=== PATIENT | female | born 1955 | race Caucasian/White ===

== ENCOUNTER 2019-09-04 07:05 | Inpatient (IN) | payer BC ==
--- NOTE | 2019-08-27 19:08 | HP ---
HISTORY AND PHYSICAL: DATE OF ADMISSION/SURGERY: 09/04/19 DATE OF OFFICE VISIT: 08/27/19 SURGEON: Kellen Washburn MD * (DICTATED BY JAKE GUERRERO) PROCEDURE: Right total knee arthroplasty. CHIEF COMPLAINT: Right knee pain. HISTORY OF PRESENT ILLNESS: Ms. Apodaca is a 63-year-old female with end-stage osteoarthritis of the right knee. She has failed conservative treatment and elected to proceed with a right total knee arthroplasty. PAST MEDICAL HISTORY: Migraine, hypertension, high cholesterol, GERD, and sleep apnea. PAST SURGICAL HISTORY: Right salivary gland removal, right carpal tunnel release, left knee arthroscopy, calcaneal osteotomy, and a tendon transfer of the left foot. CURRENT MEDICATIONS: 1. Simvastatin 20 mg daily. 2. Lisinopril 20 mg daily. 3. Buspirone 5 mg 3 times a day. 4. Omeprazole 40 mg a day. 5. Vitamin D3 calcium fiber. 6. Hydrochlorothiazide 12.5 mg a day. 7. Pantoprazole sodium 20 mg 1 to 2 tabs daily. 8. Ibuprofen as needed. 9. Sumatriptan as needed. ALLERGIES: LATEX. FAMILY HISTORY: Diabetes and stroke. SOCIAL HISTORY: She is a 63-year-old female. She lives with her . She does not smoke, use drugs or alcohol. REVIEW OF SYSTEMS: A complete 14-point review of systems was reviewed with the patient. It was positive for GERD. She denies history of DVT, PE, hepatitis, HIV, or anesthesia problems. PHYSICAL EXAMINATION GENERAL: She is well nourished, in no acute distress. She is alert and oriented x3. VITAL SIGNS: She is 66-1/2 inches tall, weighs 233 pounds. Her blood pressure is 134/82, heart rate 79. HEENT: Normocephalic, atraumatic. NECK: Supple. No palpable lymph nodes. PULMONARY: Lungs are clear to auscultation bilaterally. CARDIO: Regular rate and rhythm. Strong S1, S2. ABDOMEN: Soft, nontender, nondistended. NEUROLOGICAL: She is alert and oriented. MUSCULOSKELETAL: Right lower extremity, the skin is intact. There are no open wounds or abrasions. There is moderate effusion of the right knee. She has tenderness along the medial joint line. Range of motion 10 to 120 degrees of flexion. She is able to dorsiflex and plantarflex. She has 2+ dorsalis pedis pulse and intact sensation. ASSESSMENT AND PLAN: Ms. Apodaca is a 63-year-old female with end-stage osteoarthritis of the right knee. She has failed conservative treatment and elected to proceed with a right total knee arthroplasty. The surgery is scheduled for 09/04/[address] Washburn discussed the risks and benefits of the surgery at today's visit and all of her questions were answered. She will follow up with Dr. Washburn 2 weeks after the surgery. JAKE GUERRERO [id number]/[facility] #: [id number] WILBUR
[~2019-09-04 07:05] MED LIST: Buffered Lidocaine 1% SYRIN* 1 ML/SYRINGE INTRADERM ONE; Lactated Ringers 1000 ML Bag* 1,000 ML IV SCH; Tranexamic Acid 1,000 MG in NS 0.9% 50 ML* (outpatient use) IV SCH
[2019-09-04] MEDS ORDERED: Buffered Lidocaine 1% SYRIN* 1 ML/SYRINGE INTRADERM ONE (07:29)
[2019-09-04] MEDS ORDERED: ceFAZolin 2 GM in NS PREMIX(*) 2 GM/100 ML BAG IVPB ONE (07:29)
[2019-09-04] MEDS ORDERED: Lidocaine 2% PF * 5 ML VIAL ONE ×2 (07:42→10:44)
[2019-09-04] MEDS ORDERED: Propofol* 10 MG/ML 20 ML BTL ONE ×2 (07:42→10:44)
[2019-09-04] MEDS ORDERED: Midazolam* 1 MG/ML 2 ML VIAL (2 MG) ONE ×3 (07:43→10:23)
[2019-09-04] MEDS ORDERED: fentaNYL* 50 MCG/ML 2 ML VIAL (100 MCG VIAL) ONE ×2 (07:43→10:23)
[2019-09-04] MEDS ORDERED: Dexmedetomidine* 200 MCG/2 ML 2 ML VIAL ONE (07:44)
[2019-09-04] MEDS ORDERED: Rocuronium* 10 MG/ML VIAL ONE ×2 (10:02→10:45)
[2019-09-04] MEDS ORDERED: ROPIVACAINE 5 MG/ML 30 ML BTL (0.5%) ONE (10:58)
[2019-09-04] MEDS ORDERED: diPHENhydraMINE IV* 50 MG/ML 1 ml VIAL (BENADRYL) IV PRN ×2 (11:13→14:23)
[2019-09-04] MEDS ORDERED: oxyCODONE TAB* 5 MG TAB PO PRN (11:13)
[2019-09-04] MEDS ORDERED: Naloxone* 0.4 MG/ML 1 ML VIAL IV PRN (11:13)
[2019-09-04] MEDS ORDERED: PROCHLORPERAZINE INJ 5 MG/ML 2 ML VIAL IV PRN (11:13)
[2019-09-04] MEDS ORDERED: celeCOXIB CAP* 200 MG PO ONE (11:15)
[2019-09-04] MEDS ORDERED: Acetaminophen TAB* 325 MG PO ONE (11:15)
[2019-09-04] MEDS ORDERED: celeCOXIB CAP* 200 MG ONE (11:34)
[2019-09-04] MEDS ORDERED: Acetaminophen TAB* 325 MG ONE (11:34)
[2019-09-04] MEDS ORDERED: Dexamethasone IV* 4 MG/ML 1 ML (4 MG) ONE (12:11)
[2019-09-04] MEDS ORDERED: HYDROmorphone INJ1* 1 MG/ML SYRINGE ONE ×3 (12:30→15:07)
[2019-09-04] MEDS ORDERED: Ondansetron INJ* 2 MG/ML VIAL ONE (14:02)
[2019-09-04] MEDS ORDERED: Glycopyrrolate IV* 0.2 MG/ML 1 ML VIAL ONE (14:03)
[2019-09-04] MEDS ORDERED: Neostigmine Methylsulfate* 3 MG/3 ML SYRINGE ONE (14:03)
[2019-09-04] MEDS ORDERED: Magnesium Hydroxide LIQ* 30 ML UDC PO PRN (14:23)
[2019-09-04] MEDS ORDERED: Ondansetron ODT TAB* 4 MG PO PRN (14:23)
[2019-09-04] MEDS ORDERED: Ondansetron INJ* 2 MG/ML VIAL IV PRN (14:23)
[2019-09-04] MEDS ORDERED: Morphine INJ* 2 MG/ML 1 ML SYRINGE (TWO MG - NEW SYRINGE VERSION) IV PRN (14:23)
[2019-09-04] MEDS ORDERED: Ondansetron TAB* 4 MG PO PRN (14:23)
[2019-09-04] MEDS ORDERED: diPHENhydraMINE PO* 25 MG PO PRN (14:23)
[2019-09-04] MEDS ORDERED: Polyethylene Glycol 3350* 17 GM PACKET PO PRN (14:23)
--- NOTE | 2019-09-04 14:33 | PN ---
Progress Note - Progress Note Date of Service: 09/04/19 Note: resting in recovery; moderate pain. Able to DF/PF, 2+ DP pulse and intact sensation
[2019-09-04] MEDS: HYDROmorphone INJ1* 1 MG/ML SYRINGE IV PRN ×4 (14:34→15:09)
--- NOTE | 2019-09-04 16:04 | CONS ---
CC: Dr. Naila Coulter; Dr. Washburn * CONSULTATION REPORT: DATE OF CONSULT: 09/04/19 PRIMARY CARE PROVIDER: Dr. Naila Coulter. REASON FOR CONSULT: Management of the patient's postoperative elective right knee surgery, with history of hypertension. CHIEF COMPLAINT: Right knee pain. HISTORY OF PRESENT ILLNESS: Zuleyma Apodaca is a 63-year-old female with history of osteoarthritis, who just underwent an elective right knee replacement with Dr. Washburn. The patient has history of hypertension and a Medicine consult was requested in regards to management of the patient's chronic medical conditions. PAST MEDICAL HISTORY: 1. Gastroesophageal reflux disease. 2. History of bilateral leg edema for which the patient takes hydrochlorothiazide. 3. Dyslipidemia. 4. Hypertension. 5. History of benign salivary gland mass resection. 6. Knee arthroscopy in the past. 7. History of left ankle surgery. 8. History of obstructive sleep apnea, which was mild, not treated with CPAP. MEDICATIONS AT HOME: Include: 1. Lisinopril/hydrochlorothiazide 20/12.5 one tablet daily. 2. Ibuprofen on a p.r.n. basis. 3. Calcium carbonate/vitamin D 1 tablet daily. 4. Fiber tabs 4 tabs daily. 5. Pantoprazole 40 mg daily. 6. Imitrex 100 mg on a p.r.n. basis. 7. Simvastatin 20 mg daily. 8. BuSpar 5 mg 3 times a day. ALLERGIES: ALLOY and LATEX. FAMILY HISTORY: Positive for mother who with history of Alzheimer's at age of 89. The patient's mother also had history of diabetes. Father who of stroke at age of 61. SOCIAL HISTORY: The patient smoked for a period of a year and a half when she was in her 20s. She denies any drug use. She drinks alcohol rarely. She is currently just retired from [employer]. She lives with her female partner, who is her surrogate. REVIEW OF SYSTEMS: Please see history of present illness. All the remaining 12 systems were reviewed with the patient and were otherwise negative. PHYSICAL EXAM: Blood pressure of 152/75, heart rate of 59 and regular, respiratory rate 29, oxygen saturation 95% on room air, temperature of 98.1. General: The patient is a very pleasant 63-year-old female, who is in no acute distress. The patient is alert and oriented x3. HEENT: Head: Atraumatic, normocephalic. Eyes: Pupils are equal, reactive to light and accommodation. Oropharynx is clear. Mucosa moist. Neck: Supple. No JVD. No bruits bilaterally. Cardiovascular: Regular rate and rhythm. No murmur. Respiratory : Clear to auscultation bilaterally. Abdomen: Soft, nontender. Bowel sounds are present in all 4 quadrants. Extremities: There is no edema. Pulses are + 2 bilaterally. No clubbing or cyanosis. The right knee is in postoperative dressings with a Cryo unit in place. Neuro Evaluation: Speech is clear. Cranial nerves II through XII grossly intact. Motor strength is 5/5 bilaterally. ASSESSMENT AND PLAN: 1. In regards to the patient's postoperative right knee replacement, this is going to be deferred to primary orthopedic service. 2. For the patient's hypertension, I will hold the patient's lisinopril and hydrochlorothiazide for the time being. The patient will likely be able to restart it at discharge. 3. For gastroesophageal reflux disease, the patient's pantoprazole is going to be continued. 4. For DVT prophylaxis, the patient was already placed on apixaban by orthopedic service. 5. The patient's code status is full. Her surrogate is the patient's , Naila Penaloza. Thank you very much for allowing our service to see the patient in consultation. We will follow on an as-needed basis. [id number]/[facility] #: [id number] WILBUR
[2019-09-04] MEDS: Lactated Ringers 1000 ML Bag* 1,000 ML IV SCH (16:05)
[2019-09-04] MEDS: oxyCODONE/Acetamin 5/325 MG* TAB PO PRN ×2 (16:24→23:52)
[2019-09-04] MEDS: Atorvastatin* 10 MG TAB PO SCH (17:27)
--- NOTE | 2019-09-04 18:20 | OP ---
Operative Report - Blank - Operative Report Date of Operation: 09/04/19 Note: SHILPA JACOME 1955 Date of Surgery: 09/04/19 Kellen Washburn MD Human Resources Professional: Chuck JOSEPH did help throughout the procedure with preparation of the knee, wound retraction, manipulation of the knee, and wound closure. Anesthesiologist: Karina CHINCHILLA Anesthesia Type: Spinal Preoperative Diagnosis: Right severe degenerative osteoarthritis of the knee Postoperative Diagnosis: As above Procedure Performed: Right Total Knee Arthroplasty Tourniquet time: 44 minutes Complications: None Specimen: Bone and cartilage from the right knee joint sent to pathology. Hardware Used: Cemented Carcamo [employer] Nephew total knee hardware was used - For the femur a size 6 Narrow oxinium right legion posterior stabilized femoral component, for the tibia a size 5 right boogie II tibial baseplate, for the insert a size 11mm 5-6 posterior stabilized articular polyethylene insert, and for the patella a size 32 3-peg all poly patella. Brief History/Indication: SHILPA JACOME was known in clinic and had a history of severe right knee pain and swelling. She failed conservative treatment with anti -inflammatories, pain pills, intra-articular injections and physical therapy. She elected to undergo right total knee arthroplasty due to continued pain and decreased quality of life. Radiographs showed severe end stage osteoarthritis of the knee with bone on bone contact. Informed consent was obtained from the patient. She understood the risks of surgery included but were not limited to: bleeding, infection, damage to nearby structures, intraoperative fracture, nerve palsy, failure of the hardware, early loosening, knee stiffness or loss of motion, anesthesia complications, stroke, heart attack, blood clot and . She wished to proceed. Intra-Operative Findings: Intraoperatively the patient was noted to have severe loss of cartilage in all 3 compartments of the knee. Description of the Procedure: SHILPA JACOME was identified in the preanesthesia unit. Her right knee was marked as the correct operative side. Informed consent was signed and placed in the chart. The patient was taken to the operating room and placed under anesthesia without complication. A paredes catheter was placed. A tourniquet was placed on the right thigh. The right lower extremity was prepped and draped in the usual sterile fashion. Preoperative time-out was made to correctly identify the patient, side and site. Appropriate intraoperative antibiotics were given within one hour of incision. Tourniquet was inflated. A midline incision was made and carried sharply down to the extensor mechanism. A new 10 blade was used to make a standard medial parapatellar arthrotomy. The patella was subluxed laterally. Electrocautery was used to dissect soft tissue off the superomedial tibia to the midsagittal plane. The knee was flexed up. The anterior horn of the lateral meniscus and the ACL were sharply incised. A drill was used to enter the distal femur. The intramedullary distal femoral cutting guide was pinned on the distal femur. The oscillating saw was used to make the distal femoral cut. The external rotation guide was pinned on the distal femur and the distal femur was sized to a size 6. The size 6 multi-cutting jig was pinned on the distal femur. The oscillating saw was used to make the appropriate 4 chamfer cuts. Next the PCL was completely released. The extramedullary tibial cutting guide was pinned on the proximal tibia and the oscillating saw was used to make the proximal tibial cut perpendicular to the mechanical axis of the tibia. The bone was carefully removed. The knee was brought out into full extension. The spacer block was placed and had excellent fit with the knee in full extension. The medial and lateral ligaments were well balanced. The flexion and extension gaps were well balanced. The knee was flexed up. Lamina hydrographer was placed both medially and laterally. Any remaining meniscus was removed with electrocautery. Curved osteotome was used to remove any posterior osteophytes. The tibial tray and drop muriel were placed and confirmed a satisfactory tibial cut. The size 6 right narrow femoral trial was impacted onto the distal femur. This trial had excellent fit and stability. The box for the posterior stabilized implant was prepared using a box cut osteotome and a reamer. Next a tibial tray trial and 9 mm insert trial was placed. The knee was taken through a range of motion and had full extension to 130 degrees of flexion. Patellofemoral tracking was satisfactory. The patella was inverted and sized to a size 32. Three peg holes were drilled through the size 32 drill guide. The trial patella was placed and the knee was taken through a range of motion. There was satisfactory patellofemoral tracking. All trials were removed. The tibia was subluxed anteriorly and sized to a size 5. The proximal tibial was prepared with a size 5 keel punch. All bony cut surfaces were irrigated with sterile saline and dried. Final implants were cemented into place starting with the tibia, followed by the femur, and last the patella. A 11 mm insert trial was placed and the knee was brought into full extension. Tourniquet was turned down and the knee was copiously irrigated with sterile saline. Electrocautery was used to obtain meticulous hemostasis. Once the cement had fully cured, the insert trial was removed. Any excess cement was removed from around the hardware and capsule. Final insert chosen was a 11 mm posterior stabilized Boogie II articular insert size 5-6. Stability of the insert was checked and noted to be stable. The extensor mechanism was closed using number 1 vicryls. The rest of the incision was closed in a layered fashion using 0 and 2-0 vicryls. The skin was closed using 3-0 nylon suture. Sterile xeroform, 4x4s and webril were used to cover the incision. Timmy wrap and cold pack were used to cover the dressings. The patients anesthesia was reversed without difficulty. She was taken to the PACU in stable condition. Intended weight-bearing will be as tolerated.
[2019-09-04] MEDS: oxyCODONE TAB* 5 MG TAB PO PRN (19:18)
[2019-09-04] MEDS: ceFAZolin 1 GM ADVAN(*) 1 GM in NS 0.9% 50 ML* 50 ML IVPB SCH (20:03)
[2019-09-04] MEDS: Magnesium Hydroxide LIQ* 30 ML UDC PO SCH (21:21)
[2019-09-04] MEDS: busPIRone TAB* 5 MG PO SCH (21:21)
[2019-09-04] MEDS: Docusate CAP* 100 MG PO SCH (21:21)
[2019-09-04] MEDS: Acetaminophen TAB* 325 MG PO SCH (21:22)
[2019-09-04] MEDS: Cyclobenzaprine TAB* 10 MG PO PRN (21:26)
[2019-09-05] MEDS: Lactated Ringers 1000 ML Bag* 1,000 ML IV SCH (03:42)
[2019-09-05] MEDS: ceFAZolin 1 GM ADVAN(*) 1 GM in NS 0.9% 50 ML* 50 ML IVPB SCH ×2 (03:44→11:55)
[2019-09-05] MEDS: Acetaminophen TAB* 325 MG PO SCH ×3 (05:03→20:40)
[2019-09-05] MEDS: traMADol TAB* 50 MG PO PRN ×4 (05:03→23:24)
[2019-09-05 06:44] LABS: Hematocrit 37 % (35-47); Hemoglobin 12.7 g/dL (12.0-16.0); Mean Platelet Volume 8.1 fL (7.4-10.4); Platelet Count 168 10^3/uL (150-450)
[2019-09-05 07:00] LABS: Calcium 9.1 mg/dL (8.6-10.3); Potassium 4.6 mmol/L (3.5-5.0)
[2019-09-05 07:05] LABS: BUN/Creatinine Ratio 19.1 (8-20); EGFR Non-African American 60.3 (>60)
[2019-09-05] MEDS ORDERED: Scopolamine 1.5 mg* PATCH TRANSDERM ONE (08:00)
[2019-09-05] MEDS: Cyclobenzaprine TAB* 10 MG PO PRN ×2 (08:50→16:43)
[2019-09-05] MEDS: oxyCODONE/Acetamin 5/325 MG* TAB PO PRN ×2 (08:50→18:35)
[2019-09-05] MEDS: Apixaban* 2.5 MG TAB PO SCH ×2 (08:51→20:41)
[2019-09-05] MEDS: Magnesium Hydroxide LIQ* 30 ML UDC PO SCH ×2 (08:51→20:41)
[2019-09-05] MEDS: busPIRone TAB* 5 MG PO SCH ×3 (08:51→20:41)
[2019-09-05] MEDS: Pantoprazole TAB * 40 MG TAB PO SCH (08:51)
[2019-09-05] MEDS: Vitamin THERAPEUTIC TAB PO SCH (08:51)
[2019-09-05] MEDS: Docusate CAP* 100 MG PO SCH ×2 (08:51→20:41)
[2019-09-05] MEDS ORDERED: Lisinopril/HCTZ 20/12.5(NF) TAB PO SCH (09:00)
--- NOTE | 2019-09-05 10:54 | PN ---
Progress Note - Progress Note Date of Service: 09/05/19 SOAP: Subjective: [Pt was seen this morning sitting in chair. She states that she is feeling somewhat groggy at this point. She did do PT this am and states that she did very well. She denies any chest pain, SOB, nausea or vomiting. She states that she may wish to stay another night should she continue to feel groggy. ] Objective: [General: Pt is alert and oriented x3. NAD MSK, RLE: Dressing is c/d/i. +df/pf. calf soft and non tender. NVI distally, 2+ DP pulse. Vital Signs Temp 98.8 F 09/05/19 08:26 Pulse 70 09/05/19 08:26 Resp 18 09/05/19 10:07 BP 112/54 09/05/19 08:26 Pulse Ox 92 09/05/19 08:26 Intake & Output 09/04/19 09/05/19 09/05/19 18:59 06:59 18:59 Intake Total 1650 2585 Output Total 275 1750 Balance 1375 835 Weight 229 lb Intake: IV Fluids 1500 1035 ABX - CEFAZOLIN 55 LR 1500 980 Oral 150 1550 Output: Martino 275 1750 Other: # Bowel Movements 0 ] Assessment: [POD 1 RTKA ] Plan: [PT Eliquis 2.5mg bid Percocet 5/325 Possible DC home today vs tomorrow. ]
[2019-09-05] MEDS: oxyCODONE TAB* 5 MG TAB PO PRN (13:22)
[2019-09-05] MEDS: Atorvastatin* 10 MG TAB PO SCH (18:33)
[2019-09-06 05:49] LABS: Hematocrit 35 % (35-47); Hemoglobin 12.1 g/dL (12.0-16.0); Mean Platelet Volume 8.2 fL (7.4-10.4); Platelet Count 161 10^3/uL (150-450)
[2019-09-06] MEDS: traMADol TAB* 50 MG PO PRN (06:19)
[2019-09-06] MEDS: Acetaminophen TAB* 325 MG PO SCH (06:22)
[2019-09-06 07:51] VITALS: BP 135/69
[2019-09-06] MEDS: Pantoprazole TAB * 40 MG TAB PO SCH (08:36)
[2019-09-06] MEDS: oxyCODONE/Acetamin 5/325 MG* TAB PO PRN (08:36)
[2019-09-06] MEDS: Apixaban* 2.5 MG TAB PO SCH (08:36)
[2019-09-06] MEDS: busPIRone TAB* 5 MG PO SCH (08:36)
[2019-09-06] MEDS: Vitamin THERAPEUTIC TAB PO SCH (08:36)
[2019-09-06] MEDS: Docusate CAP* 100 MG PO SCH (08:36)
[2019-09-06] MEDS: Magnesium Hydroxide LIQ* 30 ML UDC PO SCH (08:37)
--- NOTE | 2019-09-06 09:54 | DS ---
Orthopedic Discharge Summary - Discharge Summary Date of Admission:09/04/19 Date of Discharge: 09/06/19 Date of Surgery: 09/04/19 Attending Orthopedic Provider: Dr. Washburn Pre-operative Diagnosis: Right knee osteoarthritis Operative Procedure: Right total knee arthroplasty Disposition of Patient: Home Home care vs Outpatient services: Home care Condition of Patient: Stable Pain medication RX at discharge: Percocet and Tramadol sent to [facility] DVT prophylaxis RX at discharge: Eliquis sent to [facility] in [place] History: SHILPA JACOME is a 63 year old F with years of increasingly severe right knee pain. Patient has failed conservative management and has elected to undergo a Right total knee arthroplasty Hospital Course: SHILPA was admitted to [facility] on 09/04/19. Patient underwent a Right total knee arthroplasty without complication followed by a brief recovery in PACU and transfer to the Short Stay Surgical Unit in stable condition. Our hospitalist service, physical therapy and occupational therapy also participated in this patients care. Post-op day 1: patient was alert and in no acute distress. Dressing was clean, dry and intact. Operative extremity dorsiflexion and plantarflexion intact, sensation intact to light touch distally, DP2+. Post-op day two: dressing was changed, incision was clean , dry and intact. Patient was deemed to be medically and orthopedically stable for discharge. Physical therapy goals were met. Home Medications Medication Instructions Recorded Confirmed Type Simvastatin TAB(NF) [Zocor 20 MG 20 mg PO QPM 09/29/14 09/04/19 History (NF)] busPIRone TAB* [Buspar TAB*] 5 mg PO TID 09/29/14 09/04/19 History SUMAtriptan TAB* [Imitrex TAB*] 100 mg PO SEE INSTRUCTIONS PRN 04/25/18 History Calcium Carb, Citrate/Vit D3 1 tab PO QAM 08/27/19 09/04/19 History [Calcium + D3 ER Tablet] Calcium Polycarbophil [Fiber] 4 cap PO QAM 08/27/19 09/04/19 History Lisinopril/Hydrochlorothiazide 1 each PO QAM 08/27/19 09/04/19 History [Lisinopril-Hctz 20-12.5 mg Tab] Pantoprazole TAB * [Protonix TAB*] 40 mg PO QAM 08/27/19 09/04/19 History Apixaban* [Eliquis*] 2.5 mg PO BID tab 09/05/19 Rx oxyCODONE/Acetamin 5/325 MG* 2 tab PO Q4H PRN tab 09/05/19 Rx [Percocet 5/325 TAB*] traMADol TAB* [Ultram*] 50 mg PO Q6H PRN tab 09/05/19 Rx Discharge Instructions following Orthopedic Surgery: Activity: * Weight Bearing as tolerated * Continue physical therapy and occupational therapy exercises as shown * If you have elected to have home physical therapy, continue therapy exercises at home. If you have elected outpatient physical therapy, please start therapy as an outpatient right away. * Wound care: * OK to shower on post-op day 3, no bathing, swimming, or submerging wound. * Use gentle soap, pat dry. Cover with gauze, JULIA wrap or tape. * If you elected to have a visiting home nurse, they will perform wound checks. Call Orthopedic office for: * Increased drainage * Redness * Increased pain * Fever Go to ER with shortness of breath or chest pain. Diet: * Regular diet * Increase fluids and fiber to prevent constipation. * Continue to use stool softeners, call office if no bowel motion within 48 hours. Medications See Home Medication List in your packet for medications that you should take after discharge. DVT Prophylaxis: Eliquis Dosin.5 mg, 1 tab every 12 hours x 30 days Pain Control: Tramadol 50 mg tabs: take 1 tab for breakthrough pain as needed. Max 2 per day. Hold for sedation, wean off as soon as pain allows. Percocet 5/325 mg 1 tab for moderate pain and 2 tabs for severe pain by mouth every 4 hours as needed. Maximum of 10 tabs per day. Hold for sedation , wean off as soon as pain allows Please note that Percocet contains Tylenol (acetaminophen). Maximum daily dose of Tylenol is 4000 mg from all sources. Antibiotics are required prior to any dental work. Call the office for prescription as needed. FOLLOW UP: Follow up with Dr. Washburn Within 10-14 days, call for appointment if you do not already have one. Please call our office with any questions or concerns ([phone])
[2019-09-08] MEDS ORDERED: Scopolamine PATCH Remove* 1 NOTE MISC PATCH OFF ONE (08:00)
== END 2019-09-06 11:15 | disposition home health service (06) | DRG 302 ==
LOC: AA 07:05 → SSU 14:23
PROVIDERS: ADMIT Orthopaedic Surgery Adult Reconstructive Orthopaedic Surgery; ATTEND Orthopaedic Surgery Adult Reconstructive Orthopaedic Surgery
PROC: 0SRC069 Replacement of Right Knee Joint with Oxidized Zirconium on Polyethylene Synthetic Substitute, Cemented, Open Approach (ICD-10-PCS; principal; 2019-09-04 10:00)
DX: M17.11 Unilateral primary osteoarthritis, right knee (principal); I10 Essential (primary) hypertension; E78.00 Pure hypercholesterolemia, unspecified; K21.9 Gastro-esophageal reflux disease without esophagitis; G47.33 Obstructive sleep apnea (adult) (pediatric); G43.909 Migraine, unspecified, not intractable, without status migrainosus; M25.761 Osteophyte, right knee; Z79.899 Other long term (current) drug therapy; Z91.040 Latex allergy status; Z83.3 Family history of diabetes mellitus; Z82.3 Family history of stroke; Z88.8 Allergy status to other drugs, medicaments and biological substances; Z87.891 Personal history of nicotine dependence
CPT/HCPCS: 36415; 80048; 85014; 85018; 85049; 88305; 88311; A9270-GY; C1776; J0690; J1100; J1170; J2250; J2405; J2704; J2710; J2795; J3010

== ENCOUNTER 2022-05-16 10:08 | Observation (INO) ==
[~2022-05-16 10:08] MED LIST changes: +Buffered Lidocaine 1% SYRIN 1 ml INTRADERM ONE; -Buffered Lidocaine 1% SYRIN* 1 ML/SYRINGE INTRADERM ONE; -Lactated Ringers 1000 ML Bag* 1,000 ML IV SCH; +Lactated Ringers 1000 ml BAG 1,000 ML IV SCH; +Metoclopramide 5 MG/ML VIAL (10 mg) IV PRN; +Naloxone 0.4 mg VIAL 0.4 mg/ml 1 ml VIAL IV PRN; +Ondansetron 4 mg VIAL 2 MG/ML 2 ml VIAL IV PRN; -Tranexamic Acid 1,000 MG in NS 0.9% 50 ML* (outpatient use) IV SCH
[2022-05-16] MEDS ORDERED: Lidocaine 2% PF 5 ML VIAL ONE (10:18)
[2022-05-16] MEDS ORDERED: Propofol 10 MG/ML 20 ML BTL ONE ×2 (10:18→13:51)
[2022-05-16] MEDS ORDERED: ceFAZolin 2 GM PREMIX 2 GM/50 ML BAG ONE (10:31)
[2022-05-16] MEDS ORDERED: Midazolam 2 mg/2 ml VIAL 1 mg/ml 2 ml VIAL (2 mg) ONE ×2 (11:09→13:32)
[2022-05-16] MEDS ORDERED: fentaNYL 100 mcg/2 ml 50 MCG/ML VIAL ONE ×3 (11:09→16:15)
[2022-05-16] MEDS ORDERED: ROPIVACAINE 5 MG/ML 30 ML BTL (0.5%) ONE ×2 (11:09→12:28)
[2022-05-16] MEDS ORDERED: Dexamethasone IV 4 MG/ML VIAL 1 ml VIAL ONE ×2 (11:09→13:40)
[2022-05-16] MEDS ORDERED: fentaNYL 250 mcg/5 ml 50 MCG/ML 5 ml VIAL (250 MCG) ONE (13:09)
[2022-05-16] MEDS ORDERED: Magnesium Hydroxide LIQ 30 ML UDC PO PRN (13:10)
[2022-05-16] MEDS ORDERED: Ondansetron ODT 4 mg TAB 4 MG TAB PO PRN (13:10)
[2022-05-16] MEDS ORDERED: Morphine 2 MG/ML SYRINGE IV PRN (13:10)
[2022-05-16] MEDS ORDERED: Ondansetron 4 mg VIAL 2 MG/ML 2 ml VIAL IV PRN (13:10)
[2022-05-16] MEDS ORDERED: Lactulose 30 ml UDC PO PRN (13:10)
[2022-05-16] MEDS ORDERED: Sterile Water for Inj 10 ML ONE (13:23)
[2022-05-16] MEDS ORDERED: Ondansetron 4 mg VIAL 2 MG/ML 2 ml VIAL ONE (13:24)
[2022-05-16] MEDS ORDERED: HYDROmorphone 0.5 MG/0.5 ML SYRINGE ONE ×2 (13:51→13:56)
[2022-05-16] MEDS ORDERED: Labetalol IV 5 MG/ML 20 ml VIAL ONE (14:02)
[2022-05-16] MEDS ORDERED: Ketamine HCL 50 mg/ml 10 ml VIAL (500 MG) ONE (14:26)
[2022-05-16] MEDS ORDERED: HYDROcodone/ACETAMIN 5/325 mg TAB ONE ×2 (16:15→17:19)
[2022-05-16] MEDS: fentaNYL 100 mcg/2 ml 50 MCG/ML VIAL IV PRN ×4 (16:18→17:16)
[2022-05-16] MEDS: HYDROcodone/ACETAMIN 5/325 mg TAB PO PRN ×2 (16:19→17:19)
[2022-05-16] MEDS ORDERED: Dextrose 50% Syringe 50 ml 25 GM/50 ML SYRINGE IV PUSH PRN (16:39)
[2022-05-16] MEDS: Lactated Ringers 1000 ml BAG 1,000 ML IV SCH (18:14)
[2022-05-16] MEDS ORDERED: Lisinopril/HCTZ 20/12.5 TB(NF) PO SCH ×2 (21:00)
[2022-05-16] MEDS: Magnesium Hydroxide LIQ 30 ML UDC PO SCH (22:11)
[2022-05-16] MEDS: ceFAZolin 1 GM ADVAN 1 GM in NS 0.9% 50 ML 50 ML IVPB SCH (22:18)
[2022-05-17] MEDS: ceFAZolin 1 GM ADVAN 1 GM in NS 0.9% 50 ML 50 ML IVPB SCH ×2 (05:32→12:53)
[2022-05-17] MEDS: Lactated Ringers 1000 ml BAG 1,000 ML IV SCH (06:16)
[2022-05-17 06:27] LABS: Hematocrit 38 % (35-47); Hemoglobin 12.4 g/dL (12.0-16.0); Mean Platelet Volume 8.2 fL (7.4-10.4); Platelet Count 166 10^3/uL (150-450)
[2022-05-17 06:57] LABS: Calcium 8.8 mg/dL (8.6-10.3); Potassium 4.1 mmol/L (3.5-5.0)
[2022-05-17 07:03] LABS: eGFR CKD-EPI 64.8 (>60)
[2022-05-17] MEDS: Magnesium Hydroxide LIQ 30 ML UDC PO SCH (08:17)
[2022-05-17] MEDS ORDERED: Vitamin THERAPEUTIC TAB PO SCH (09:00)
[2022-05-17] MEDS ORDERED: Calcium Polycarbophil 625mg TB PO SCH (09:00)
[2022-05-17] MEDS ORDERED: CYANOCOBALAMIN 50 MCG PO SCH (09:00)
[2022-05-17 11:26] VITALS: BP 113/60
== END 2022-05-17 15:05 | disposition home or self-care (01) ==
LOC: SSU 10:08 → OR 10:08
PROVIDERS: ADMIT Orthopaedic Surgery Adult Reconstructive Orthopaedic Surgery; ATTEND Orthopaedic Surgery Adult Reconstructive Orthopaedic Surgery